=== PATIENT | female | born 1985 | race Hispanic/Latino ===

== ENCOUNTER 2018-12-02 17:19 | Emergency (ER) | payer SELFPAY ==
[2018-12-02 18:39] LABS: BHCG - Serum POSITIVE (NEGATIVE); Pregs Control Background? CLEAR/WHITE (CLR/WHITE); Pregs Control Bar Appear? YES (CONTROL BAR)
[2018-12-02 18:41] LABS: #Eosinphils 0.4 thou/uL (0.0-0.7); #Lymphocytes 1.6 thou/uL (1.20-3.40); #Monocytes 0.4 thou/uL (0.11-0.59); #Neutrophils 5.1 thou/uL (1.40-6.50); %Basophils 0.5 % (0.0-1.0); %Eosinophils 4.9 % (0.0-10.0); %Lymphocytes 21.3 % (21.0-51.0); %Monocytes 5.9 % (0.0-10.0); %Neutrophils 67.4 % (42.0-75.0); Hemoglobin 13.7 g/dL (12.0-16.0); Mean Corpuscular HGB CONC 34.7 g/dL (32.0-36.0); Mean Corpuscular Hemoglobin 33.8 pg (27.0-31.0); Mean Corpuscular Volume 97.2 fL (78.0-98.0); Mean Platelet Volume 7.3 fL (7.4-10.4); Platelet Count 309 thou/uL (130-400); RBC Distribution Width 11.2 % (11.5-14.5); Red Blood Cell (RBC) Count 4.05 mill/uL (4.20-5.40); White Blood Cell (WBC) Count 7.5 thou/uL (4.8-10.8)
[2018-12-02 18:46] LABS: Bilirubin Negative (Negative); Blood, Urine Negative (Negative); Clarity Clear (Clear); Glucose, Urine (Dipstick) Normal (Negative); Leukocyte Negative Leu/uL (Negative); Nitrite Negative (Negative); Protein, Urine (Dipstick) Negative (Neg-Trace); Urobilinogen Normal mg/dL (Less than 2)
[2018-12-02 18:55] LABS: ALT (SGPT) 10 U/L (8-55); AST (SGOT) 13 U/L (5-34); Albumin 4.3 g/dL (3.5-5.0); Alkaline Phosphatase 68 U/L (40-150); Anion Gap 14 mmol/L (10-20); BUN (Urea Nitrogen) 11 mg/dL (7.0-18.7); Bilirubin, Total 0.4 mg/dL (0.2-1.2); Calc. Creatinine Clearance 0 mL/min (70-130); Calcium 9.9 mg/dL (7.8-10.44); Carbon Dioxide 22 mmol/L (22-29); Chloride 105 mmol/L (98-107); Estimated GFR-MDRD Greater than 90; Glucose 89 mg/dL (70-105); Potassium 3.8 mmol/L (3.5-5.1); Protein, Total 7.3 g/dL (6.0-8.3); Sodium 137 mmol/L (136-145)
[2018-12-05 00:06] LABS: Chlamydia by PCR Not Detected (NotDetected); GC by PCR Not Detected (NotDetected)
== END 2018-12-02 19:41 | disposition home or self-care (01) ==
LOC: ERS 17:19
DX: O20.0 Threatened abortion (principal); Z3A.11 11 weeks gestation of pregnancy
CPT/HCPCS: 80053; 81003; 84703; 85025; 86850; 86900; 86901; 87480; 87491; 87510; 87591; 87660; 94760

== ENCOUNTER 2019-08-11 11:59 | Emergency (ER) | payer OTHER | END 2019-08-11 14:19 | disposition home or self-care (01) | LOC: ERS 11:59 | DX: J06.9 Acute upper respiratory infection, unspecified (principal); Z03.818 Encounter for observation for suspected exposure to other biological agents ruled out | CPT/HCPCS: 87081; 87430; 87635; 87804; 99283; U0003 ==

== ENCOUNTER 2020-03-15 10:01 | Inpatient (IN) | payer MEDICAID, OTHER, SELFPAY ==
[2020-03-15] MEDS ORDERED: Ondansetron PF 4 MG/2 ML Vial IVP PRN ×2 (11:26→22:52)
[2020-03-15] MEDS ORDERED: Lactated Ringer's 1,000 ML IV SCH (11:26)
[2020-03-15] MEDS ORDERED: Butorphanol Tartrate 1 MG/ML VIAL SLOW IVP PRN (11:26)
[2020-03-15] MEDS ORDERED: NS w/ Oxytocin 10 units 500 ML IV SCH (11:26)
[2020-03-15] MEDS ORDERED: hydrALAZINE 20 MG/ML VIAL SLOW IVP PRN (11:26)
[2020-03-15] MEDS ORDERED: HYDROcodone/Acetaminophen 5/325 mg Tablet PO PRN ×2 (11:26)
[2020-03-15] MEDS ORDERED: Promethazine HCl 25 MG/ML VIAL IM PRN ×2 (11:26→22:52)
[2020-03-15] MEDS ORDERED: NS / Oxytocin 40 units/1000ml 1,000 ML IV PRN (11:26)
[2020-03-15] MEDS ORDERED: Lidocaine 1% (PF) 30 ML VIAL SC PRN (11:26)
[2020-03-15] MEDS ORDERED: Ibuprofen 800 MG TAB PO PRN (11:26)
[2020-03-15 11:34] VITALS: BMI 35.6
[2020-03-15 11:37] LABS: Hemoglobin 12.3 g/dL (12.0-16.0); Mean Corpuscular HGB CONC 30.8 g/dL (32.0-36.0); Mean Corpuscular Hemoglobin 27.3 pg (27.0-31.0); Mean Corpuscular Volume 88.6 fL (78.0-98.0); Mean Platelet Volume 8.5 fL (7.4-10.4); Platelet Count 250 thou/uL (130-400); RBC Distribution Width 14.8 % (11.5-14.5); White Blood Cell (WBC) Count 10.5 thou/uL (4.8-10.8)
[2020-03-15 12:32] LABS: HBSAg Index 0.16 S/CO (0-0.99); Hep B Surf Ag Non-Reactive S/CO (NonReactive)
[2020-03-15] MEDS ORDERED: Bupivacaine 0.25% HCL 30 ML VIAL ONE (13:52)
[2020-03-15 14:58] LABS: Syphilis Antibody Nonreactive (Nonreactive)
[2020-03-15] MEDS ORDERED: Bupivacaine 0.5% 20 ML, fentaNYL Citrate/PF 400 MCG in Sodium Chloride 0.9% 72 ML EPIDURAL SCH (17:00)
[2020-03-15] MEDS ORDERED: DISCONTINUE ALL PREVIOUS NARCOTICS FS SCH (17:00)
[2020-03-15] MEDS: Meperidine HCl/PF 25 MG/ML VIAL SLOW IVP PRN ×2 (21:04→21:53)
[2020-03-15] MEDS ORDERED: Bicitra 30 ML UDCUP ONE (22:07)
[2020-03-15] MEDS ORDERED: Fentanyl 100 MCG/2 ML VIAL ONE ×2 (22:14→22:58)
[2020-03-15] MEDS ORDERED: Succinylcholine 200 MG/10 ml SYRINGE FS ONE (22:14)
[2020-03-15] MEDS ORDERED: PROPOFOL 20 ML ONE (22:14)
[2020-03-15] MEDS ORDERED: Midazolam HCl 2 mg/2 ml Vial ONE (22:14)
[2020-03-15] MEDS ORDERED: CEFAZOLIN 2 GM in Premix Bag 1 BAG IVPB SCH (22:15)
[2020-03-15] MEDS ORDERED: Azithromycin 500 MG in Sodium Chloride 0.9% 250 ML 250 ML IVPB SCH (22:15)
[2020-03-15] MEDS ORDERED: Bicitra 30 ML UDCUP PO SCH (22:15)
[2020-03-15] MEDS ORDERED: Oxytocin 10 UNITS/ML VIAL ONE (22:19)
--- NOTE | 2020-03-15 22:48 | PRG ---
DATE OF SERVICE: 03/15/2020 TIME OF SERVICE: 2200 hours. Ms. Solo's cervix has been unchanged at 7 cm, -1 to -2 station for approximately 4 to 5 hours. The patient has had a labor epidural attempt placed x4 over a 2-hour period with a wet tap and no successful analgesia. The patient has been placed in multiple positions without success in altering what appears to likely be an occiput transverse presentation versus occiput posterior presentation. Attempts at analgesia with Demerol and Stadol have been unsuccessful in reaching an appropriate level, though patient can relax and proceed in labor. Secondary to all of this, we will go ahead and proceed with a primary delivery. For failure to dilate, failure to descend, and likely head malpresentation, we will consult anesthesia. Likely will require rapid sequence induction with general anesthesia secondary to previous wet tap and we will administer both Zithromax and Ancef for antibiotic prophylaxis. Job ID: [id number]
[2020-03-15] MEDS ORDERED: diphenhydrAMINE 25 MG CAP PO PRN (22:52)
[2020-03-15] MEDS ORDERED: diphenhydrAMINE 50 MG/ML VIAL IM PRN (22:52)
[2020-03-15] MEDS ORDERED: HYDROmorphone 2 MG/ML VIAL SLOW IVP PRN (22:52)
[2020-03-15] MEDS ORDERED: Zolpidem Tartrate 5 MG TAB PO PRN (22:52)
[2020-03-15] MEDS ORDERED: Meperidine HCl/PF 25 MG/ML VIAL SLOW IVP PRN (22:52)
[2020-03-15] MEDS ORDERED: fentaNYL Citrate/PF 2,000 MCG in Sodium Chloride 0.9% 60 ML IV PRN (22:52)
[2020-03-15] MEDS ORDERED: Ondansetron HCl/PF 4 MG/2 ML Vial IVP PRN (22:52)
[2020-03-15] MEDS ORDERED: L&D-Morphine 4 MG/ML VIAL SLOW IVP PRN (22:52)
[2020-03-15] MEDS ORDERED: Naloxone HCl 0.4 mg/ml Vial IV PRN (22:52)
[2020-03-15] MEDS ORDERED: diphenhydrAMINE 50 MG/ML VIAL IVP PRN (22:52)
[2020-03-15] MEDS ORDERED: Ketorolac Tromethamine 30 MG/ML VIAL IVP SCH (23:00)
[2020-03-15] MEDS ORDERED: Communication Order-Pharmacy FS SCH (23:00)
[2020-03-15 23:02] LABS: SARS-CoV-2 MS2 Positive; SARS-CoV-2 N Gene Negative; SARS-CoV-2 S Gene Negative; SARS-CoV-2 by NAA Not Detected (NotDetected); SARS-CoV-2 orf1ab Negative
--- NOTE | 2020-03-16 00:19 | OP ---
DATE OF PROCEDURE: 03/15/2020 TIME OF SERVICE: 2310 hours. PREOPERATIVE DIAGNOSIS: Failure to progress, arrest of descent, occiput posterior presentation with moderate variable decelerations. POSTOPERATIVE DIAGNOSIS: Failure to progress, arrest of descent, occiput posterior presentation with moderate variable decelerations plus macrosomia and confirmed persistent occiput posterior presentation. PROCEDURE PERFORMED: Primary low-transverse section without extension. STEREO COMPILER: Jayleen Macario D.O., PGY-2. ANESTHESIA: General endotracheal, Kelvin Martinez MD. MEDICATIONS: 2 g Ancef and 500 Zithromax pre incision, DVT prophylaxis, SCDs. DRAINS: Scruggs to gravity. OPERATIVE FINDINGS: 1. Vigorous male infant, 9 pounds 7 ounces, 4280 g. Apgars pending and persistent occiput presentation. 2. Normal-appearing uterus, tubes, and ovaries. 3. Hemostasis, clear urine. COUNTS: Correct at the end of the procedure. DISPOSITION: Recovery room in good condition. QUANTITATIVE BLOOD LOSS: Pending. DESCRIPTION OF PROCEDURE: After obtaining appropriate informed consent, the patient was taken to the operating room, where was rapid sequence induction of general endotracheal anesthesia achieved without difficulty. The patient was prepped and draped. Prior to initiation of anesthesia, Pfannenstiel incision was made and carried down to the fascia, extended superiorly and laterally with curved Alvarez scissors, rectus dissected off sharply superiorly and inferiorly, divided midline, peritoneum entered bluntly to avoid trauma to the underlying viscera. Carlos O retractor was placed inside and low-transverse hysterotomy made above the level of the vesicouterine peritoneal fold, extended superiorly and laterally with finger fractionization. Infant's head elevated to the hysterotomy noted to be persistent right occiput posterior, delivered on the abdomen, suction cord clamped and cut, handed off to the team in attendance. Usual cord blood sample obtained. Placenta removed manually. Hysterotomy was inspected and noted to be without extensions. Closed using running locking #1 Monocryl suture x1. Good hemostasis was noted after closure. Gutters were irrigated out and reinspection of hysterotomy revealed it to be dry. The Carlos O retractor was removed. Counts were correct. Rectus inspected, noted to be dry. Fascia was reapproximated using 0 PDS suture x2. Subcutaneous tissue irrigated, rendered hemostatic with Bovie cautery, reapproximated using a 2-0 plain gut. Skin reapproximated using 4-0 Monocryl and Dermabond. The patient was awakened, extubated and taken to the recovery room in good condition. Infant's weight was 9 pounds 7 ounces, 40-80 g consistent with a diagnosis of macrosomia, which lead along with a persistent occiput posterior malpresentation of the head to obstruction of labor leading to this for delivery. Job ID: [id number]
[2020-03-16] MEDS: Lactated Ringer's 1,000 ML IV SCH ×6 (05:08→22:43)
[2020-03-16] MEDS ORDERED: Lanolin Ointment 7 GM TUBE TOP PRN (05:09)
[2020-03-16] MEDS ORDERED: Promethazine HCl 25 MG/ML VIAL IM PRN (05:09)
[2020-03-16] MEDS ORDERED: Ondansetron PF 4 MG/2 ML Vial IVP PRN (05:09)
[2020-03-16] MEDS ORDERED: diphenhydrAMINE 25 MG CAP PO PRN (05:09)
[2020-03-16] MEDS ORDERED: Meperidine HCl/PF 25 MG/ML VIAL IM PRN (05:09)
[2020-03-16] MEDS ORDERED: HYDROcodone/Acetaminophen 5/325 mg Tablet PO PRN (05:09)
[2020-03-16] MEDS ORDERED: hydrALAZINE 20 MG/ML VIAL SLOW IVP PRN (05:09)
[2020-03-16] MEDS ORDERED: Zolpidem Tartrate 5 MG TAB PO PRN (05:09)
[2020-03-16] MEDS: Ibuprofen 800 MG TAB PO SCH ×3 (06:04→21:05)
--- NOTE | 2020-03-16 06:54 | PDOC.PP ---
Post Progress Note Post Day #: 0 PO intake tolerated: yes Flatus: yes Ambulation: yes Weight Weight 206 lb - Physical Examination General: NAD Cardiovascular: no m/r/g, RRR Respiratory: clear to auscultation bilaterally, non-labored breathing Abdominal: + bowel sounds, lochia, no distention, appropriately TTP Extremities: negative homans (B) Skin: CS incision dry & intact, no rash Neurological: no gross focal deficits Psychiatric: A&Ox3, normal affect (doing well. awaiting bed on pp) Result Diagrams: 03/15/20 11:29 Additional Labs: Post Labs Hep Bs Antigen Non-Reactive S/CO (NonReactive) 03/15/20 11:29 Blood Type O POSITIVE 03/15/20 11:55
[2020-03-16] MEDS: Prenatal Vitamin 1 TAB PO SCH (08:10)
[2020-03-16] MEDS: Docusate Calcium (SURFAK) 240 MG CAP PO SCH ×2 (08:10→19:40)
[2020-03-16] MEDS ORDERED: Adacel (T-DAP) 0.5 ML SYRINGE IM ONE (09:00)
[2020-03-16] MEDS ORDERED: FLU VACC QS2020-21(6MOS UP)/PF 60 MCG/0.5 ML SYRINGE IM ONE (10:45)
[2020-03-16] MEDS: HYDROcodone/Acetaminophen 5/325 mg Tablet PO PRN ×4 (11:27→23:37)
[2020-03-16] MEDS ORDERED: Ketorolac Tromethamine 30 MG/ML VIAL IVP SCH (13:30)
[2020-03-16] MEDS: Simethicone Chewable 80 MG TAB PO PRN (23:37)
--- NOTE | 2020-03-17 05:09 | PDOC.PP ---
Post Progress Note Post Day #: POD1 Subjective: Resting, no c/o. PO intake tolerated: yes Flatus: no Ambulation: yes Vital Signs (12 hours) Temp Pulse Resp BP Pulse Ox 03/17/20 03:25 98.0 F 95 16 113/66 03/16/20 23:30 98.0 F 101 H 18 110/60 03/16/20 19:45 98.1 F 100 16 120/68 97 Weight Weight 93.44 kg - Physical Examination General: NAD Respiratory: non-labored breathing Abdominal: no distention Skin: CS incision dry & intact Neurological: no gross focal deficits Psychiatric: normal affect Result Diagrams: 03/15/20 11:29 Additional Labs: Post Labs Hep Bs Antigen Non-Reactive S/CO (NonReactive) 03/15/20 11:29 Blood Type O POSITIVE 03/15/20 11:55 - Assessment/Plan Stable postop. Advance diet Ambulate H/H this AM Routine postop care
[2020-03-17] MEDS: Ibuprofen 800 MG TAB PO SCH ×3 (05:25→21:48)
[2020-03-17] MEDS: Simethicone Chewable 80 MG TAB PO PRN (05:25)
[2020-03-17] MEDS: HYDROcodone/Acetaminophen 5/325 mg Tablet PO PRN ×4 (05:26→19:41)
[2020-03-17 06:41] LABS: Hemoglobin 8.5 g/dL (12.0-16.0); Mean Corpuscular HGB CONC 32.1 g/dL (32.0-36.0); Mean Corpuscular Hemoglobin 28.9 pg (27.0-31.0); Mean Platelet Volume 7.4 fL (7.4-10.4); Platelet Count 235 thou/uL (130-400); RBC Distribution Width 14.9 % (11.5-14.5); Red Blood Cell (RBC) Count 2.93 mill/uL (4.20-5.40); White Blood Cell (WBC) Count 13.3 thou/uL (4.8-10.8)
[2020-03-17] MEDS: Docusate Calcium (SURFAK) 240 MG CAP PO SCH ×2 (08:23→19:42)
[2020-03-17] MEDS: Prenatal Vitamin 1 TAB PO SCH (08:23)
[2020-03-17] MEDS: Lactated Ringer's 1,000 ML IV SCH ×2 (14:06→19:42)
[2020-03-18] MEDS: HYDROcodone/Acetaminophen 5/325 mg Tablet PO PRN ×4 (01:27→18:18)
[2020-03-18] MEDS: Lactated Ringer's 1,000 ML IV SCH ×4 (05:57→23:05)
[2020-03-18] MEDS: Ibuprofen 800 MG TAB PO SCH ×3 (05:57→20:23)
--- NOTE | 2020-03-18 06:17 | PDOC.PP ---
Post Progress Note Post Day #: 3 Subjective: Doing well, wants to go home today PO intake tolerated: yes Flatus: yes Ambulation: yes Vital Signs (12 hours) Temp Pulse Resp BP Pulse Ox 03/17/20 20:00 98.3 F 91 18 125/65 99 Weight Weight 206 lb Past vitals reviewed - Physical Examination General: NAD Respiratory: non-labored breathing Abdominal: no distention, appropriately TTP Skin: CS incision dry & intact (rogelio in place), no rash Neurological: no gross focal deficits Psychiatric: A&Ox3, normal affect Result Diagrams: 03/17/20 06:04 Additional Labs: Post Labs Hep Bs Antigen Non-Reactive S/CO (NonReactive) 03/15/20 11:29 Blood Type O POSITIVE 03/15/20 11:55 (1) delivery delivered Code(s): O82 - ENCOUNTER FOR DELIVERY WITHOUT INDICATION Status: Acute - Assessment/Plan POD3 doing well. OK for DC to home. I signed the [facility] form per her request. Rogelio out Thursday or thursday this week at [facility]
[2020-03-18] MEDS: Prenatal Vitamin 1 TAB PO SCH (08:58)
[2020-03-18] MEDS: Docusate Calcium (SURFAK) 240 MG CAP PO SCH ×2 (08:58→20:23)
[2020-03-18] MEDS ORDERED: Ondansetron ODT 4 MG TAB SL PRN (09:43)
--- NOTE | 2020-03-18 14:49 | PDOC.BPN ---
- Brief Progress Note Encounter Date: 03/18/20 Encounter Time: 14:49 Patient wishes to stay 1 more day due to spinal headache.
[2020-03-19] MEDS: HYDROcodone/Acetaminophen 5/325 mg Tablet PO PRN ×2 (00:50→08:36)
[2020-03-19] MEDS: Ibuprofen 800 MG TAB PO SCH ×2 (05:02→14:02)
[2020-03-19] MEDS: Prenatal Vitamin 1 TAB PO SCH (08:36)
[2020-03-19] MEDS: Docusate Calcium (SURFAK) 240 MG CAP PO SCH (08:36)
[2020-03-19 09:39] VITALS: TEMP 98.1
[2020-03-19] MEDS: Lactated Ringer's 1,000 ML IV SCH (11:32)
[2020-03-19 14:43] VITALS: BP 118/67
== END 2020-03-19 14:42 | disposition home or self-care (01) | DRG 788 ==
LOC: L&D/OP 10:01 → L&D 11:26 → 3SW 03-16 15:30
PROVIDERS: ADMIT Obstetrics & Gynecology; ATTEND Obstetrics & Gynecology
PROC: 10D00Z1 Extraction of Products of Conception, Low, Open Approach (ICD-10-PCS; principal; 2020-03-16)
DX: O76 Abnormality in fetal heart rate and rhythm complicating labor and delivery (principal); O32.4XX0 Maternal care for high head at term, not applicable or unspecified; Z20.828 Contact with and (suspected) exposure to other viral communicable diseases; O36.63X0 Maternal care for excessive fetal growth, third trimester, not applicable or unspecified; O74.5 Spinal and epidural anesthesia-induced headache during labor and delivery; Z3A.39 39 weeks gestation of pregnancy; Z37.0 Single live birth; O64.0XX0 Obstructed labor due to incomplete rotation of fetal head, not applicable or unspecified
CPT/HCPCS: 36415; 51702; 85027; 86780; 86850; 86900; 86901; 87340; 87635; 99285; J0690; J1885; J2175; J2250; J2704; J3010; J3490; Q0162; S0020; U0003

== ENCOUNTER 2020-12-12 10:40 | Outpatient (CLI) | payer OTHER | END 2020-12-12 10:41 | disposition home or self-care (01) | LOC: BICULT 10:40 | PROVIDERS: ATTEND Family Medicine | DX: O09.522 Supervision of elderly multigravida, second trimester (principal); Z3A.23 23 weeks gestation of pregnancy | CPT/HCPCS: 76805 ==